=== PATIENT | male | born 1995 | race Caucasian/White ===

== ENCOUNTER 2016-04-12 13:56 | Observation (INO) | payer BC ==
[~2016-04-12 13:56] MED LIST: CEPHALEXIN 500 MG CAP PO SCH; HYDROCODONE/APAP 5/325 TAB PO SCH
[2016-04-12] MEDS ORDERED: ceFAZolin 1 GM VIAL IVP ONE (15:02)
[2016-04-12] MEDS ORDERED: TDAP ADULT 0.5 ML INJ (BOOSTRIX) IM ONE (15:02)
--- NOTE | 2016-04-12 15:19 | EDPHY ---
H & P Stated Complaint: l knee laceration cut on snowboard Time Seen by Provider: 04/12/16 14:27 HPI/ROS: CHIEF COMPLAINT: left knee laceration HISTORY OF PRESENT ILLNESS: 20-year-old male presents emergency department with a laceration to his left knee from a snowboard. Patient was getting off the ski lift when he fell onto his friends snow board. Patient reports his tetanus is not up-to-date, denies numbness or tingling in this leg, denies other complaints. REVIEW OF SYSTEMS: A comprehensive 10 point review of systems is otherwise negative aside from elements mentioned in the history of present illness. Source: Patient Exam Limitations: No limitations - Personal History Current Tetanus/Diphtheria Vaccine: Yes - Medical/Surgical History Hx Asthma: No Hx Chronic Respiratory Disease: No Hx Diabetes: No Hx Cardiac Disease: No Hx Renal Disease: No Hx Cirrhosis: No Hx Alcoholism: No Hx HIV/AIDS: No Hx Splenectomy or Spleen Trauma: No Other PMH: denies - Social History Smoking Status: Current some day smoker - Physical Exam Exam: Physical Exam Gen: Alert and Oriented, NAD HEENT: PERRL, moist mucous membranes NECK: No CVA tenderness CV: regular rate and regular rhythm PULM: CTAB, no wheezes NEURO: Neurologically grossly intact EXTREMITIES: Left knee with extensor mechanisms intact, able to straight leg raise. SKIN: 4 cm horizontal laceration just distal to patella with visible patellar tendon laceration PSYCH: answers questions appropriately. Constitutional: Initial Vital Signs Temperature (C) 36.6 C 04/12/16 14:09 Heart Rate 67 04/12/16 14:09 Respiratory Rate 16 04/12/16 14:09 Blood Pressure 127/86 H 04/12/16 14:09 O2 Sat (%) 96 04/12/16 14:09 O2 Delivery Mode Room Air Allergies/Adverse Reactions: No Known Allergies Allergy (Verified 04/12/16 14:08) Home Medications: Medication Instructions Recorded NK [No Known Home Meds] 04/12/16 Medical Decision Making - Diagnostics Imaging: Left knee x-ray independently reviewed by me- No fracture ED Course/Re-evaluation: 3pm- Dr. Kristi nj. He will take the patient to the OR today to wash this out and repair the tendon. IV has been established, patient is made NPO, he last ate at 8:30 a.m. this morning and drank water at noon. Patient has been given 1 g of Ancef IV, his tetanus is updated. His knee laceration was anesthetized with 10 mL as of half 1% lidocaine with epinephrine and half 0.5% bupivacaine with epinephrine. Patient is aware of surgery time around 830 tonight. He is comfortable with this plan. - Data Points Medications Given: Discontinued Medications Diphtheria/Tetanus/Acell Pertussis (Boostrix) 0.5 ml IM .ONCE ONE Stop: 04/12/16 15:03 Last Admin: 04/12/16 15:30 Dose: 0.5 ml Departure - Departure Disposition: To OP Cath/Surgery Clinical Impression: Laceration of knee with tendon involvement Qualifiers: Encounter type: initial encounter Laterality: left Qualifier Code: (S81.012A) Laceration without foreign body, left knee, initial encounter Condition: Good
[2016-04-12] MEDS ORDERED: CEFAZOLIN 1 GM/DEXTROSE/50 ML BAG IV ONE (15:20)
--- NOTE | 2016-04-12 17:01 | DX ---
Left Knee, 5 Views, at 3:28 p.m. Clinical History: 20-year-old male who sustained a deep laceration near the patella after skiing. Comparison Study: None. Findings: On the lateral view there is a laceration which extends caudal to the patella abutting the anterior margin of the expected patellar tendon. There is no patella javier or baja. There is no apprec iable suprapatellar joint effusion, and there is no loose osteochondral body or radiopaque foreign rylee dy. The distal femur, the proximal tibia, and the proximal fibula are intact. There is no patellofemo ral joint space narrowing, tilting, or subluxation. Impression: Soft tissue injury over the anterior margin of the mid-aspect of the patellar tendon, wit h no acute osseous abnormality.
[2016-04-12] MEDS ORDERED: MIDAZOLAM 2 MG/2 ML VIAL ONE (19:11)
[2016-04-12] MEDS ORDERED: LIDOCAINE 2% 5 ML SDV ONE (19:14)
[2016-04-12] MEDS ORDERED: fentaNYL 100 MCG/2 ML INJ ONE ×2 (19:16→19:43)
[2016-04-12] MEDS ORDERED: PROPOFOL 200 MG/20 ML VIAL ONE ×2 (19:16→19:42)
[2016-04-12] MEDS ORDERED: ceFAZolin 1 GM VIAL ONE (19:32)
[2016-04-12] MEDS ORDERED: LIDOCAINE 1% 30 ML SDV ONE (19:36)
[2016-04-12] MEDS ORDERED: BUPIVACAINE 0.25% 30 ML SDV ONE (19:36)
[2016-04-12] MEDS ORDERED: GLYCOPYRROLATE 0.2 MG/1 ML VIAL ONE (19:42)
[2016-04-12] MEDS ORDERED: METOCLOPRAMIDE 10 MG/2 ML VIAL ONE (19:42)
[2016-04-12] MEDS ORDERED: DEXAMETHASONE 4 MG/ML VIAL ONE (20:01)
[2016-04-12] MEDS ORDERED: ONDANSETRON 4 MG/2 ML VIAL ONE (20:01)
[2016-04-12] MEDS ORDERED: SKIN ADHESIVE (DERMABOND) 1 EACH TP ONE (20:17)
[2016-04-12 21:23] VITALS: RESP 14; O2SAT 98
[2016-04-12 21:37] VITALS: BP 125/76; PULSE 81; TEMP 98.3
--- NOTE | 2016-04-14 02:45 | SUROPNOTE ---
[facility] Operative Report - Surgery Operative Report DOS: 04/12/2016 Preop dx: Left knee laceration and patellar tendon tear Postop Dx: Same Procedure: L knee laceration I&D, Patellar tendon repair, Knee joint injection challenge Indications: 20y M fell off ski lift onto friends snowboard edge at [place]. Brought to ED for evaluation. Given tetanus, Pt elected for undergoing procedure tonight and then going home with followup Procedure: Consent reviewed with patient and family who elected to proceed. Pt taken to OR and transferred to bed. left leg prepped and draped in typical fashion. Time out performed, confirming pt, site, and surgery. Wound explored - located about retirement between patella and tubercle. No gross contamination. Tear in paratenon and visible tendon fibers. >75% of tendon intact. 3L irrigant flushed through knee wound. Knee joint challenged with 170 cc of normal saline injected into lateral suprapatellar portal. No fluid extravasation seen out of wound. Tendon tear repaired with 2-O ethibond. 2-O monocryl used to close retinaculum and paratenon and to close subQ. subcuticular running stitch placed for wound with dermabond sealing it. Tegaderm placed over dermabond. knee wrapped in jessica and placed into knee immobilizer supplied by [facility]. I was present for the entirety of the case. Counts were correct at the conclusion of the case. Complications: None Drain: None EBL: <5cc Plan: Patient will be WBAT in his brace, with his knee in the immobilizer.
== END 2016-04-12 23:15 | disposition home or self-care (01) ==
LOC: F3N 17:07
PROVIDERS: ADMIT Orthopaedic Surgery; ATTEND Orthopaedic Surgery
PROC: 0HQLXZZ Repair Left Lower Leg Skin, External Approach (ICD-10-PCS; 2016-04-12)
PROC: 0LQR0ZZ Repair Left Knee Tendon, Open Approach (ICD-10-PCS; principal; 2016-04-12 19:31)
DX: S81.012A Laceration without foreign body, left knee, initial encounter (principal); S86.892A Other injury of other muscle(s) and tendon(s) at lower leg level, left leg, initial encounter; Y93.23 Activity, snow (alpine) (downhill) skiing, snowboarding, sledding, tobogganing and snow tubing; V00.312A Snowboarder colliding with stationary object, initial encounter; Y92.828 Other wilderness area as the place of occurrence of the external cause; Y99.8 Other external cause status; F17.200 Nicotine dependence, unspecified, uncomplicated
CPT/HCPCS: 12002; 27380; 73564; G0378; 96365; J0690; J1100; J2250; J2405; J2704; J2765; J3010